=== PATIENT | male | born 1970 ===

== ENCOUNTER 2017-01-30 08:48 | Emergency (ER) | payer OTHER ==
[2017-01-30 09:02] VITALS: BP 145/98; PULSE 87; RESP 16; TEMP 97.7; O2SAT 99
--- NOTE | 2017-01-30 09:30 | C.PDOC ---
History Of Present Illness 46yo male comes in with new onset lower and upper back pain since yesterday. Pain started while pt stood up from a sitting position. Denies a Hx of chronic blood pressure. No trauma. Pain is in B/L lower-back, occasionally radiating upward to b/l upper back. Pain is worse w/ standing, and changing sleeping position in bed. No associated weakness/numbness, urinary/bowel incontinence/ retention, or any other associated symptoms. No other complaints at this time NEW ONSET LOWER AND UPPER BACK PAIN SINCE YEST. ONSET WHILE STANDING UP FROM SITTING POSITION. DENIES HO CHRONIC BP. NO TRAUMA. B/L LOWER BACK, OCC B/L UPP BACK PAIN. WORSE W STANDING UP FROM SITTING, ROTATION ON BED. NO ASSOC WEAK NUMB. NO MEDS TRIED EXAM MILD DIST NONTOXIC BACK LIMITED ROM DUE TO PAIN. B/L LOWER BACK SPASM W LOCAL TEND. NO SPINAL TEND. NEURO INTACT Time Seen by Provider: 01/30/17 09:25 Chief Complaint (Nursing): Back Pain History Per: Patient History/Exam Limitations: no limitations Onset/Duration Of Symptoms: Days Past Medical History Reviewed: Historical Data, Nursing Documentation, Vital Signs Vital Signs: Last Vital Signs Temp 97.7 F 01/30/17 08:59 Pulse 87 01/30/17 08:59 Resp 16 01/30/17 08:59 BP 145/98 H 01/30/17 08:59 Pulse Ox 99 01/30/17 09:33 Family History: States: No Known Family Hx - Social History Hx Alcohol Use: Yes Hx Substance Use: No - Immunization History Hx Influenza Vaccination: No Review Of Systems Except As Marked, All Systems Reviewed And Found Negative. Constitutional: Negative for: Fever Respiratory: Negative for: Shortness of Breath Gastrointestinal: Negative for: Vomiting, Diarrhea, Constipation Genitourinary: Negative for: Incontinence Musculoskeletal: Positive for: Back Pain Neurological: Negative for: Weakness, Numbness, Headache, Dizziness Physical Exam - Physical Exam Appears: Non-toxic, No Acute Distress Skin: Warm, Dry, No Rash Head: Atraumatic, Normacephalic Eye(s): bilateral: Normal Inspection Nose: Normal Oral Mucosa: Moist Lips: Normal Appearing Neck: Normal ROM Chest: Symmetrical Cardiovascular: Rhythm Regular Respiratory: No Accessory Muscle Use Back: Other (LIMITED RANGE OF MOTION SECONDARY TO PAIN. B/L LOWER BACK SPASM W/ LOCAL TENDERNESS. NO SPINAL TENDERNESS. ) Extremity: Normal ROM Neurological/Psych: Oriented x3 ED Course And Treatment O2 Sat by Pulse Oximetry: 99 Progress - Data Reviewed Data Reviewed: Old records Disposition Counseled Patient/Family Regarding: Diagnosis, Need For Followup, Rx Given - Disposition Referrals: [facility] [Outside] [facility] [Outside] Disposition: HOME/ ROUTINE Disposition Time: 09:31 Condition: IMPROVED Prescriptions: Acetaminophen [Tylenol Extra Strength] 2 tab PO Q6 #30 tablet Cyclobenzaprine [Flexeril] 10 mg PO TID #15 tab Ibuprofen [Motrin] 600 mg PO Q6 #30 tab Lidocaine 5% [Lidoderm] 1 ea TD PRN PRN #10 patch PRN Reason: Pain, Moderate (4-7) Instructions: Acute Low Back Pain (ED) Print Language: MACEDONIAN - Clinical Impression Clinical Impression: Low back strain, Upper back pain - Scribe Statement The provider has reviewed the documentation as recorded by the Kj Luevano All medical record entries made by the Barrettibarlet were at my direction and personally dictated by me. I have reviewed the chart and agree that the record accurately reflects my personal performance of the history, physical exam, medical decision making, and the department course for this patient. I have also personally directed, reviewed, and agree with the discharge instructions and disposition.
[2017-01-30] MEDS ORDERED: Lidocaine 5% Patch TD STA (09:32)
[2017-01-30] MEDS ORDERED: Lidocaine 5% Patch TD ONE (09:37)
== END 2017-01-30 09:42 | disposition home or self-care (01) ==
LOC: C.ER 08:48
DX: S39.012A Strain of muscle, fascia and tendon of lower back, initial encounter (principal); M54.6 Pain in thoracic spine; X58.XXXA Exposure to other specified factors, initial encounter; Y93.89 Activity, other specified; Y92.003 Bedroom of unspecified non-institutional (private) residence as the place of occurrence of the external cause

== ENCOUNTER 2017-02-02 15:11 | Emergency (ER) | payer OTHER ==
[2017-02-02 16:51] LABS: RBC URINE 7 /hpf (0-3); URINE BACTERIA RARE (<OCC); URINE BILIRUBIN NEGATIVE (NEGATIVE); URINE COLOR Yellow (YELLOW); URINE GLUCOSE (UA) NORMAL (Normal); URINE KETONE TRACE mg/dL (NEGATIVE); URINE LEUKOCYTE ESTERASE NEG Leu/uL (Negative); URINE PROTEIN 1+ mg/dL (NEGATIVE); URINE UROBILINOGEN NORMAL mg/dL (0.2-1.0); WBC URINE 3 /hpf (0-5)
[2017-02-02 16:56] LABS: URINE BLOOD TRACE (NEGATIVE)
--- NOTE | 2017-02-02 17:29 | C.PDOC ---
History Of Present Illness 46 year old male presents to the emergency room with complaints of lower back pain for 5 days. Patient notes that the pain radiates upward. Patient was evaluated for back pain 2 days ago in [facility] and has taken medications prescribed for transient relief. Patient denies any changes in sensation, dysuria, bowel or urinary incontinence, frequency, hematuria, abdominal pain, trauma or any other complaints. Time Seen by Provider: 02/02/17 15:32 Chief Complaint (Nursing): Back Pain History Per: Patient History/Exam Limitations: no limitations Onset/Duration Of Symptoms: Days (4) Current Symptoms Are (Timing): Still Present Quality Of Discomfort: "Pain" Severity: Mild Previous Symptoms: Back Pain, Chronic Pain Associated Symptoms: denies: Incontinence, New Weakness, New Numbness Exacerbating Factor(s): Nothing Recent travel outside of the [place]: No Past Medical History Reviewed: Historical Data, Nursing Documentation, Vital Signs Vital Signs: Last Vital Signs Temp 98.0 F 02/02/17 17:46 Pulse 86 02/02/17 17:46 Resp 16 02/02/17 17:46 BP 146/81 02/02/17 17:46 Pulse Ox 100 02/02/17 19:36 Family History: States: Unknown Family Hx - Social History Hx Alcohol Use: Yes Hx Substance Use: No - Immunization History Hx Influenza Vaccination: No Review Of Systems Except As Marked, All Systems Reviewed And Found Negative. Constitutional: Negative for: Fever, Chills Gastrointestinal: Negative for: Nausea, Vomiting, Abdominal Pain, Diarrhea Genitourinary: Negative for: Dysuria, Frequency, Incontinence, Hematuria Musculoskeletal: Positive for: Back Pain (Lower back pain) Neurological: Negative for: Weakness, Numbness Physical Exam - Physical Exam Appears: Non-toxic, No Acute Distress Skin: Warm, Dry, No Rash Head: Atraumatic, Normacephalic Eye(s): bilateral: Normal Inspection, EOMI Nose: Normal Oral Mucosa: Moist Neck: Normal ROM, No Midline Cervical Tenderness, No Paracervical Tenderness Chest: Symmetrical, No Deformity, No Tenderness Cardiovascular: Rhythm Regular Respiratory: Normal Breath Sounds, No Rales, No Rhonchi, No Wheezing Gastrointestinal/Abdominal: Soft, No Tenderness, No Guarding, No Rebound Back: No CVA Tenderness, No Vertebral Tenderness, Paraspinal Tenderness ( Paralumbar tenderness) Extremity: Normal ROM, No Tenderness Neurological/Psych: Oriented x3, Normal Speech, Normal Cognition, Normal Motor, Normal Sensation Gait: Steady ED Course And Treatment O2 Sat by Pulse Oximetry: 100 - Other Rad LS Spine X-ray X-Ray: Interpreted by Me, Viewed By Me Interpretation: No fractures or dislocations Progress Note: Progress note from chart of previous visit was reviewed- BP notes to have improved. Patient was given Toradol and Flexeril. On reassessment , patient is resting comfortably, with improvement of back pain. Patient remains afebrile, with no bony tenderness, extremity numbness or weakness, or abdominal pain. Pts symptoms do not appear of those of renal colic. No CVA or flank tenderness. Patient is ambulatory in the emergency department with no signs of discomfort. Patient was advised to follow up with physician/clinic in 1 -2 days. Information was reiterated in cymraes for comprehension. Case discussed with Dr Ortega , donavon chapman plan and treatment. Disposition - Disposition Referrals: [facility] [Outside] Disposition: HOME/ ROUTINE Disposition Time: 17:29 Condition: STABLE Additional Instructions: Follow up with the clinic in 2-5 days for further evaluation. Take medications as prescribed. Return to the emergency department at any time if symptoms persist or worsen. You may call [facility] for any assistance [phone]. Prescriptions: Diazepam [Valium] 2 mg PO BID PRN #10 tablet PRN Reason: Muscle Spasm Naproxen [Naprosyn] 1 tab PO BID PRN #20 tab PRN Reason: Pain Instructions: Acute Low Back Pain (ED) Print Language: SIER[place] LEONEAN - Clinical Impression Clinical Impression: Low back pain - Scribe Statement The provider has reviewed the documentation as recorded by the Scribarlet Reyes All medical record entries made by the Barrettibarlet were at my direction and personally dictated by me. I have reviewed the chart and agree that the record accurately reflects my personal performance of the history, physical exam, medical decision making, and the department course for this patient. I have also personally directed, reviewed, and agree with the discharge instructions and disposition.
[2017-02-02 17:46] VITALS: BP 146/81; PULSE 86; RESP 16; TEMP 98
[2017-02-02 19:30] VITALS: O2SAT 100
--- NOTE | 2017-02-03 09:28 | RAD ---
Lumbar spine three views History: Back pain. Comparison: None available. Findings: Mild retrolisthesis of L4 on L5. Minimal retrolisthesis of L3 on L4. Minimal multilevel anterior osteophyte formation. Lower level facet hypertrophy and sclerosis. Paravertebral osteophyte formation at the right aspect of the L5-S1 vertebral body junction. Mild superior endplate concavities noted at the L1 and L2 vertebral body levels. Impression: Degenerative changes. If pain persists, consider MRI.
== END 2017-02-02 17:52 | disposition home or self-care (01) ==
LOC: C.ER 15:11
DX: M54.5 Low back pain (principal)
CPT/HCPCS: 72100; 81001; 96372; 99283; J1885